=== PATIENT | female | born 1970 | race Caucasian/White ===

== ENCOUNTER → 2023-09-12 | Outpatient (CLI) | payer OTHER, SELFPAY ==
[2023-09-12 16:20] LABS: Cholesterol 216 mg/dL (200); High Density Lipoprotein 80 mg/dL; Triglycerides 58 mg/dL; Very Low Density Lipoprotein 12 mg/dL (5-40)
== END | disposition home or self-care (01) ==
LOC: MFPLAB 11:44
PROVIDERS: PCP Family Medicine; Visit Provider Family Medicine
DX: E78.2 Mixed hyperlipidemia (principal)
CPT/HCPCS: 36415; 80061

== ENCOUNTER 2024-02-07 08:25 | Day surgery (SDC) | payer OTHER, SELFPAY ==
[2024-02-07] VITALS (7 sets, daily range): BP systolic 104–117; BP diastolic 63–90; PULSE 62–71; RESP 14–16; TEMP 36.1–36.7; O2SAT 97–100; BMI 23.8
[2024-02-07] MEDS: Lactated Ringers 1,000 ML 15 ML IV (08:43)
--- NOTE | 2024-02-07 09:39 | HP.PCM_ITS ---
HPI - General HPI Narrative DESIRAE FIORE, is a 53 F who presents for screening colonoscopy. She has never had a colonoscopy in the past. She denies abdominal pain or blood in the stool. She has no family history of colon cancer. [facility] Medical History (Updated 02/01/24 @ 12:18 by Doris Mondragon) Post-menopausal Smoker Wears glasses Home Medications NK 01/04/24 [History Last Taken Unknown] Allergy/AdvReac Type Severity Reaction Status Date / Time No Known Allergies Allergy Verified 02/07/24 08:38 Surgical History (Updated 02/01/24 @ 12:18 by Doris Mondragon) Hx of right knee surgery Hx of wisdom tooth extraction Social History (Updated 01/04/24 @ 09:25 by Tahira Nowak) household members: spouse current occupational status: unemployed Smoking Status: Never smoker substance use type: does not use Past Medical/Surgical History Planned Operation Planned Operative Procedure/s: COLONOSCOPY-OA Previous Hospitalizations/Surgeries HX Hospitalizations: No Any Problems With Anesthesia: No You/Your Family Experience Fever (Hyperthermia) With Anes: No Cholinesterase deficiency: No Cardiovascular Hx Hypertension: No Respiratory Hx Sleep Apnea: No Hx Respiratory Tract Infection/Cold (presently): No Do You Snore Loudly (louder than talking or can be heard): No Do You Often Feel Tired/ Fatigued/ Sleepy Dring Daytime?: No Has Anyone Observed You Stop Breathing During Sleep?: No Result (for STOP score): Negative Smoking Status: Never smoker Neurological Does patient have nerve stimulator: No Miscellaneous Recent Exposure to Contagious Disease: No Allergies No Known Allergies Allergy (Verified 02/07/24 08:38) Discharge Is Pt Admitted From a Correction, or a Custodial: No After D/C, Where Do you Plan to Go: Return Home Vital Signs Vital Signs Vital Signs: 02/07/24 08:39 02/07/24 08:39 Temperature 97.9 F Temperature Source Temporal Pulse Rate 71 Respiratory Rate 16 Respiratory Pattern Normal Blood Pressure 117/90 H Blood Pressure Mean 99 Blood Pressure Source Monitor Blood Pressure Position Sitting Blood Pressure Location Right Arm Pulse Ox 100 Oxygen Delivery Method Room Air Weight Weight: 143 lb 4.807 oz Body Mass Index (BMI) 23.8 Physical Exam Const alert and oriented x3 HEENT normocephalic Eyes PERRL Resp normal respiratory effort and normal air movement Cardio regular rate and regular rhythm GI soft to palpation, non-tender and non-distended Extremity normal to inspection Assessment & Plan Assessment/Plan (1) Encounter for screening for malignant neoplasm of colon: PLAN: I explained endoscopy in detail to the patient. I explained the risks including but not limited to stroke or heart attack with anesthesia, perforation of the GI tract, bleeding, infection. I explained that any of these could necessitate further emergency surgery. The patient understands and all ques tions were answered sufficiently. The patient wishes to proceed with procedure. Wilber Vital MD Pager: [facility] [address] [place] [address], [address] [place] [address] Office: Surgery Risks - Colonoscopy Risks Include but are not Limited To: Risks include but are not limited to: Bleeding, perforation requiring further surgery, inability to complete colonoscopy requiring barium enema.
--- NOTE | 2024-02-07 10:14 | OP.CCLET_ITS ---
02/07/2024 Hiral Veras, Do Re : Colonoscopy procedure for Emily Morin Dear Rito This procedure was performed on Wednesday, February 07, 2024. My impressions and recommendations are as follows: Impressions : - The entire examined colon is normal on direct and retroflexion views. - No specimens collected. Recommendations : - Discharge patient to home. - Resume previous diet. - Continue present medications. - Await pathology results. - Repeat colonoscopy in 10 years for screening purposes. My findings are described in the full procedure note, which is enclosed. If I can be of further assistance, please feel free to contact me at Doctor phone number(s): , Work: . Sincerely, Wilber Vital MD 02/07/2024 10:14:05 AM This report has been signed electronically.
--- NOTE | 2024-02-07 10:14 | OP.COLON_ITS ---
Patient Name: Emily Morin Procedure Date: 02/07/2024 9:38 AM Date of : 1970 Age: 53 Procedure: Colonoscopy Indications: Screening for colorectal malignant neoplasm Providers: Wilber Vital MD Medicines: Propofol per Anesthesia Patient Profile: This is a 53 year old female. Refer to note in patient chart for documentation of history and physical. Last Colonoscopy: none. The patient's first colonoscopy is today. Complications: No immediate complications. Procedure: Pre-Anesthesia Assessment: - Prior to the procedure, a History and Physical was performed, and patient medications and allergies were reviewed. The patient's tolerance of previous anesthesia was also reviewed. The risks and benefits of the procedure and the sedation options and risks were discussed with the patient. All questions were answered, and informed consent was obtained. Prior Anticoagulants: The patient has taken no anticoagulant or antiplatelet agents. After reviewing the risks and benefits, the patient was deemed in satisfactory condition to undergo the procedure. After I obtained informed consent, the scope was passed under direct vision. Throughout the procedure, the patient's blood pressure, pulse, and oxygen saturations were monitored continuously. The Colonoscope was introduced through the anus and advanced to the cecum, identified by appendiceal orifice and ileocecal valve. The colonoscopy was performed without difficulty. The patient tolerated the procedure well. The quality of the bowel preparation was good. The ileocecal valve, appendiceal orifice, and rectum were photographed. Scope In: 9:51:59 AM Scope Withdrawal Time 0 hours 6 minutes 0 seconds Scope Out: 10:10:09 AM Total Procedure Duration Time 0 hours 18 minutes 10 seconds Findings: The entire examined colon appeared normal on direct and retroflexion views. Impression: - The entire examined colon is normal on direct and retroflexion views. - No specimens collected. Recommendation: - Discharge patient to home. - Resume previous diet. - Continue present medications. - Await pathology results. - Repeat colonoscopy in 10 years for screening purposes. Procedure Code(s): --- Professional --- 49059, Colonoscopy, flexible; diagnostic, including collection of specimen(s) by brushing or washing, when performed (separate procedure) Diagnosis Code(s): --- Professional --- Z12.11, Encounter for screening for malignant neoplasm of colon CPT copyright 2021 [employer]. All rights reserved. The codes documented in this report are preliminary and upon rock drill operator review may be revised to meet current compliance requirements. Wilber Vital MD 02/07/2024 10:14:05 AM This report has been signed electronically. Number of Addenda: 0 Note Initiated On: 02/07/2024 9:38 AM
== END 2024-02-07 10:52 | disposition home or self-care (01) ==
LOC: EN 08:26 → AC 08:27
PROVIDERS: PCP Family Medicine; Referring Provider Family Medicine; Visit Provider Surgery
PROC: 0DJD8ZZ Inspection of Lower Intestinal Tract, Via Natural or Artificial Opening Endoscopic (ICD-10-PCS; CPT 45378; principal; 2024-02-07 09:40)
DX: Z12.11 Encounter for screening for malignant neoplasm of colon (principal)
CPT/HCPCS: 45378; J2405

== ENCOUNTER → 2024-06-20 | Outpatient (CLI) | payer OTHER, SELFPAY ==
--- NOTE | 2024-06-20 10:19 | US_ITS ---
STUDY: SUPERFICIAL ULTRASOUND - LEFT FLANK REASON FOR EXAM: Female, 53 years old. neoplasm of uncertain behavior-possible lipoma -- left flank lipoma TECHNIQUE: A superficial ultrasound was performed with real-time and static goode-scale imaging. COMPARISON: No relevant prior comparison study available FINDINGS: In the region of concern of the left flank, at the area of palpable abnormality, there is a well-marginated mass identified. This is parallel to the tissue planes and shows similar echogenicity to the adjacent fat. This measures 6.7 x 5.4 x 2.4 cm. No significant Doppler vascularity. US/Other Unlisted US Procedure IMPRESSION: Mass in the region of concern of the left flank is consistent with a lipoma. Electronically Signed: Kirit Martinez MD at 22:14 EDT ,
== END | disposition home or self-care (01) ==
LOC: US 10:17
PROVIDERS: PCP Family Medicine; Referring Provider Surgery Plastic and Reconstructive Surgery; Visit Provider Surgery Plastic and Reconstructive Surgery
DX: D48.7 Neoplasm of uncertain behavior of other specified sites (principal)
CPT/HCPCS: 76999

== ENCOUNTER 2024-06-27 07:23 | Day surgery (SDC) | payer OTHER, SELFPAY ==
[2024-06-27] VITALS (10 sets, daily range): BP systolic 97–113; BP diastolic 61–76; PULSE 62–89; RESP 14–17; TEMP 36.3–36.9; O2SAT 95–100; BMI 23.5
--- NOTE | 2024-06-27 07:54 | HP.PCM.SX_ITS ---
HPI - General HPI Narrative DESIRAE FIORE, is a 53 F who presents for flank mass removal, LEFT. I marked it in pre-operative holding. Current Encounter (DATE OF SURGERY H&P UPDATE): I saw and examined the patient this morning in pre-operative holding. We discussed risks and benefits of today's surgery and they would like to proceed. NO CHANGE in health history since last seen and evaluated. Ready to proceed with surgery. [facility] Medical History (Updated 06/07/24 @ 09:20 by Rasheeda Schuler) Non-smoker Wears glasses Post-menopausal Home Medications ?Medication ?Instructions ?Recorded ?Last Taken ?Type ondansetron 4 mg disintegrating 4 mg PO Q8H PRN nausea and 06/27/24 Unknown Rx tablet vomiting 5 days #10 tabs oxycodone 5 mg tablet 5 mg PO Q12H PRN pain 5 days #10 06/27/24 Unknown Rx tabs Allergy/AdvReac Type Severity Reaction Status Date / Time No Known Allergies Allergy Verified 06/27/24 07:53 Surgical History (Updated 06/25/24 @ 09:51 by Doris Mnodragon) Hx of colonoscopy Hx of wisdom tooth extraction Hx of right knee surgery Social History household members: spouse current occupational status: unemployed Smoking Status: Never smoker substance use type: does not use Vital Signs Vital Signs Vital Signs: Weight Weight: 148 lb Physical Exam Narrative Trunk Left flank mobile mass, approximately 8 x 10 cm. It is just below her chest wall on her left abdomen. No tenderness to palpation. Assessment & Plan Assessment/Plan (1) Neoplasm of uncertain behavior: (2) Encounter for screening for malignant neoplasm of colon: PLAN: Plan INTERVAL H&P PLAN, DATE OF SURGERY: We will proceed with surgery today (removal of left flank mass). I talked the patient about the risks of surgery, including bleeding, infection, damage to surrounding structures, surgical site dehiscence and wound formation, need for wound care, need for repeat operations, failure to obtain the desired result, DVT/PE, and the risks of anesthesia including . All of their questions were answered, and they agreed to proceed with surgery. I marked the mass with the patient and we were all in agreement that we had the correct spot.
[2024-06-27] MEDS: Lactated Ringers 1,000 ML 15 ML IV (07:56)
--- NOTE | 2024-06-27 08:20 | PCM.OP.BLANK ---
Operative Report Surgery/Procedure Date: 27 June 2024 Incision/Procedure Start Time: 10:32 am Incision Close/Procedure End Time: 11:04 am PATIENT: Emily Morin SURGEON: William Pearl MD PRE-OPERATIVE DIAGNOSIS: Left flank mass POST-OPERATIVE DIAGNOSIS: Same PROCEDURE PERFORMED: 1) Excision and removal of left flank mass, 6 x 6 cm (CPT:30313) 2) Complex (rib exposure at base of the wound) closure of left flank wound, 6 cm (CPT: 86149) OPERATIVE FINDINGS: Fatty mass beneath the left latissimus muscle on top of the rib cage. INDICATIONS: Ms. Burkett is a delightful 53-year-old with history of left flank mass. Ultrasound demonstrated that it was in the subcutaneous planes and consistent with lipoma. Plan for removal today in the operating room. Patient understands the risks and benefits. OPERATIVE DETAILS: Patient was correctly identified in preoperative holding and the mass was marked. The patient was in agreement with the site marking. They were taken back to the operating room where they were administered general anesthesia and prepped and draped in sterile fashion in the right lateral decubitus position (care was taken to provide an axillary role and pad all bony prominences). A timeout was performed. 0.25% Marcaine with 1-200,000 epinephrine was used anesthetize the site for total injection of 20 cc. The 15 blade scalpel was used to make a direct incision over the mass. Dissection with Bovie electrocautery was then carried out down to the underlying muscle (latissimus) and the mass was palpated beneath this muscle (the anterior aspect of the latissimus). I then spread with a curved hemostat/Bovie to dissect between the muscle fibers along the course of their axis to preserve the muscle. The mass was then seen beneath the muscle and dissected out with tenotomy scissors for blunt dissection. The mass was removed and sent to pathology and measured 6 x 6 cm. The wound cavity was irrigated with copious amounts of normal saline. Hemostasis was obtained with Bovie electrocautery. The wound was closed in layers, with a 3-0 vicryl figure of 8 to approximate the muscle edges, a 2-0 PDS to approximate Peggy's fascia, and 3-0 Monocryl deep dermal sutures followed by running subcuticular 3-0 Monocryl suture and Prineo tape for total complex closure of 6 cm (complex because of exposure of bone (rib at the base of the wound, requiring repair of overlying muscle)). The patient tolerated the procedure well. They were awakened and taken the PACU in stable condition. All counts were correct at the completion of the case. EBL: 10 cc Anesthesia: General Anesthesia, and 20 cc of quarter percent Marcaine with epinephrine ASA: 2 IVF: 700 cc LR UOP: Unmeasured Transfusions: None Preoperative Ancef 2 g IV Specimens: Left flank mass POST-OPERATIVE PLAN: Follow-up in 1 week to discuss pathology and for wound check. No strenuous activity for 1 month. Steri-Strips will fall off on their own and can get wet in 48 hours in the shower only (overlying dressing can come off in 48 hours when patient showers).
--- NOTE | 2024-06-27 08:31 | PCM.PRE.AN2 ---
ASA Classification* ASA Classification ASA Classification: 1 Assessment & Plan Anesthesia* Anesthesia Assessment Anesthesia Assessment: Discussed sedation and/or anesthesia options, risks, benefits, and alternatives with patient/parents/legal guardian/POA. Questions invited. The patient/parents/legal guardian/POA seems to understand and agrees to proceed with anesthesia plan. Reviewed the physical assessment, medical history, allergy history and patient home medications list prior to surgery/procedure/anesthetic and documented any changes. Performed airway and anesthesia risk assessments. 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 When Was Last Pacemaker Check QUESTION #4 FULL TEXT: You/Your Family Experience fever (hyperthermia) with Anesthesia Last Oral Intake Last Oral intake: Last Oral Intake NPO since 00:00 06/27/24 07:53 Meds taken in AM with sips of No 06/27/24 07:53 water? 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 Female Yes 06/25/24 09:51 HX of Motion Sickness Yes 06/25/24 09:51 HX of N/V After Surgery No 06/25/24 09:51 Non-Smoker Yes 06/25/24 09:51 Duration of Surgery greater No 06/25/24 09:51 than 60 minutes Number of Risk Factors 3 06/25/24 09:51 PONV Score Moderate Risk 06/25/24 09:51 Height & Weight Height & Weight: Anesthesia: Height & Weight Height 5 ft 6 in 06/27/24 07:53 Weight: 66 kg 06/27/24 07:53 Body Mass Index (BMI) 23.5 06/27/24 07:53 Respiratory Assessment Respiratory Assessment - asphalt distributor operator: Respiratory Tract Infection Hx - asphalt distributor operator Hx Respiratory Tract Infection No 06/25/24 09:51 STOP Sleep Apnea STOP Sleep Apnea - asphalt distributor operator: STOP Sleep Apnea - asphalt distributor operator Hx Hypertension No 06/25/24 09:51 Hx Sleep Apnea No 06/25/24 09:51 CPAP BIPAP Do you snore loudly (louder No 06/25/24 09:51 than talking or can be heard Do you often feel tired/ No 06/25/24 09:51 fatigued/ sleepy during daytime? Has anyone observed you stop No 06/25/24 09:51 breathing during sleep? STOP Results Negative 06/25/24 09:51 QUESTION #5 FULL TEXT : Do you snore loudly (louder than talking or can be heard through closed doors)? 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 Specify any problems Hx of Preganancy in last 3 No 06/25/24 09:51 Months Nurse Filling Out Transfusion VCHRISTIN 06/25/24 09:51 & Questions: Date: 06/25/24 06/25/24 09:51 Time: 09:52 06/25/24 09:51 Patient unable to answer at this time (ie. confused, unrespo /Reproduction History /Reproductive History - asphalt distributor operator: /Reproductive Hx- asphalt distributor operator Hx Now Gestational Age (in weeks): EDC: Hx Hx Para Hx Section SAB Active Medications Active Medications: Current Medications Generic Name Dose Route Start Last Admin Trade Name Freq PRN Reason Stop Dose Admin Cefazolin Sodium 2 gm/ Sodium 110 mls @ 150 mls/hr 06/27/24 09:05 Chloride IV 06/27/24 09:48 PREOP ONE Lactated Ringer's 1,000 mls @ 15 mls/hr 06/27/24 07:45 06/27/24 07:56 IV 15 mls/hr .Q48H NEISHA Administration PFSH Medical History (Updated 06/07/24 @ 09:20 by Rasheeda Schuler) Non-smoker Wears glasses Post-menopausal Home Medications ?Medication ?Instructions ?Recorded ?Last Taken ?Type ondansetron 4 mg disintegrating 4 mg PO Q8H PRN nausea and 06/27/24 Unknown Rx tablet vomiting 5 days #10 tabs oxycodone 5 mg tablet 5 mg PO Q12H PRN pain 5 days #10 06/27/24 Unknown Rx tabs Allergy/AdvReac Type Severity Reaction Status Date / Time No Known Allergies Allergy Verified 06/27/24 07:53 Surgical History (Updated 06/25/24 @ 09:51 by Doris Mondragno) Hx of colonoscopy Hx of wisdom tooth extraction Hx of right knee surgery Social History household members: spouse current occupational status: unemployed Smoking Status: Never smoker substance use type: does not use Review of Systems (Anesthesia) ROS Narrative System reviewed and no additional complaints, except as documented.
--- NOTE | 2024-06-27 09:05 | MASS_PTH ---
PATIENT: DESIRAE MOISE LOC: [facility] U#:[id number] AGE/SX: 53/F ROOM: RE06/27/[address]: Dr. William Pearl MD : 1970 BED: DIS: 06/27/2024 SPEC #: [id number] RECD: 06/27/24 14:05 STATUS: MERON CHANDA #: [id number] GRAEME: 06/27/24 09:[address]: William Pearl DEPT: SURGICAL PATHOLOGY RECD BY: Gabriela Lundberg ENTERED: 06/28/24 08:10 SP TYPE: Mass OTHR DR: Caroline Veras, [facility], DO Tissues: Flank, NOS Procedures: Surgery Specimen Level IV HEADER OPERATION: Left flank mass removal PRE-OP DIAGNOSIS: Neoplasm of uncertain behavior TISSUE SUBMITTED: Left flank mass MICROSCOPIC DIAGNOSIS Left flank mass, excision: Mature adipose tissue consistent with lipoma. LIZANDRO. 06/29/2024 MICROSCOPIC DESCRIPTION Slides are reviewed. GROSS DESCRIPTION Received in fixative is one container labeled with the patient's name and designated Left flank mass. The specimen consists of a lobulated piece of yellow adipose tissue measuring 7.0 x 6.0 x 2.5cm. The specimen is partly disrupted. Sections reveal yellow adipose cut surfaces without area of hemorrhage, necrosis, or cystic degeneration. [employer] Professor sections are submitted in four cassettes. 06/28/2024 TC:1 CPT:52166
[2024-06-27] MEDS: Cefazolin 2 GM in 0.9% Normal Saline (100mL Bag) 100 ML IV (10:05)
[2024-06-27] MEDS: Bupiv/Epi 0.25% 30 ML Vial (10:57)
--- NOTE | 2024-06-27 11:23 | PCM.POST.ANE ---
Anesthesia: Postop Eval I Current Vital Signs Temperature: 97.7 F Pulse Rate: 89 Blood Pressure: 97/70 Respiratory Rate: 14 Pulse Ox: 99 Oxygen Delivery Method: Room Air Assessment Airway patent: Yes Spontaneous unlabored respirations: Yes Mental status: Awake and Calm nausea: No Vomiting: No Anesthesia Complication: No Fluid Hydration Crystalloid volume administer (ml): 700 Total IV fluid infused: 700 Progress Note Anesthesia document: Postop Eval 1 completed: Yes
--- NOTE | 2024-06-27 16:27 | POSTOPAN2_ITS ---
Anesthesia Postop Eval I Sum Postop Eval Completion status Anesthesia document: Postop Eval 1 completed: Yes Anesthesia Postop Eval I Summary Anesthesia Postop Eval I Summary: Anesthesia Postop Eval I: Assessment Summary Airway patent Yes 06/27/24 11:24 [email or web address] Spontaneous unlabored Yes 06/27/24 11:24 MORTGAGE [email or web address].[email or web address] respirations Mental status Awake,Calm 06/27/24 11:24 MORTGAGE [email or web address] nausea No 06/27/24 11:24 MORTGAGE [email or web address] Vomiting No 06/27/24 11:24 MORTGAGE [email or web address] Anesthesia Postop Eval I: Fluid Summary Crystalloid volume administer 700 06/27/24 11:24 MORTGAGE [email or web address].[email or web address] (ml) Colloids volume administered ( ml) Blood Product volume administered (ml) Total IV fluid infused 700 06/27/24 11:24 MORTGAGE [email or web address].[email or web address] Anesthesia Postop Eval I: Summary Notes Anesthesia Complication No 06/27/24 11:24 MORTGAGE BANKER.PORSHALOVinny Anesthesia Complication Comment: Post-operative progress note Anesthesia: Postop Eval II Evaluation Mental status: Awake and Calm Pain Level: 2 nausea: No Vomiting: No Complications Anesthesia Complication: No
--- NOTE | 2024-06-27 16:27 | PCM.POSTANE2 ---
Anesthesia Postop Eval I Sum Postop Eval Completion status Anesthesia document: Postop Eval 1 completed: Yes Anesthesia Postop Eval I Summary Anesthesia Postop Eval I Summary: Anesthesia Postop Eval I: Assessment Summary Airway patent Yes 06/27/24 11:24 OPERATOR/ASSISTANT [email or web address].[email or web address] Spontaneous unlabored Yes 06/27/24 11:24 OPERATOR/ASSISTANT FOREMAN.[email or web address] respirations Mental status Awake,Calm 06/27/24 11:24 OPERATOR/ASSISTANT FOREMAN.[email or web address] nausea No 06/27/24 11:24 OPERATOR/ASSISTANT [email or web address].[email or web address] Vomiting No 06/27/24 11:24 OPERATOR/ASSISTANT [email or web address] Anesthesia Postop Eval I: Fluid Summary Crystalloid volume administer 700 06/27/24 11:24 OPERATOR/ASSISTANT [email or web address].[email or web address] (ml) Colloids volume administered ( ml) Blood Product volume administered (ml) Total IV fluid infused 700 06/27/24 11:24 OPERATOR/ASSISTANT [email or web address].[email or web address] Anesthesia Postop Eval I: Summary Notes Anesthesia Complication No 06/27/24 11:24 OPERATOR/ASSISTANT FOREMAN.PORSHALOVinny Anesthesia Complication Comment: Post-operative progress note Anesthesia: Postop Eval II Evaluation Mental status: Awake and Calm Pain Level: 2 nausea: No Vomiting: No Complications Anesthesia Complication: No
== END 2024-06-27 12:36 | disposition home or self-care (01) ==
LOC: SDC 07:30 → AC 07:31
PROVIDERS: PCP Family Medicine; Referring Provider Surgery Plastic and Reconstructive Surgery; Visit Provider Surgery Plastic and Reconstructive Surgery
PROC: (CPT 21933; principal; 2024-06-27 08:50)
DX: D17.1 Benign lipomatous neoplasm of skin and subcutaneous tissue of trunk (principal)
CPT/HCPCS: 21933; 13101; 00300; 88305; J7120; J2405